=== PATIENT | female | born 1990 | race Caucasian/White ===

== ENCOUNTER 2017-03-29 11:04 | Emergency (ER) | payer MEDICAID ==
--- NOTE | 2017-03-29 11:34 | EDPHY ---
H & P Stated Complaint: st x 2 days Time Seen by Provider: 03/29/17 11:31 HPI/ROS: HPI: This is a 27-year-old female who presents with Chief Complaint: Cough, sore throat Location: Chest Quality: Cough Duration: 2-3 days Signs and Symptoms: No fever, + dry cough, no chills, + sore throat, + nasal congestion, no neck stiffness, no headache, no nausea, no vomiting, no abdominal pain, no chest pain, shortness of breath Timing: Gradual onset Severity: [id number] Context: Patient recently moved to the area has a history of asthma, + tobacco user does not have her albuterol inhaler presents with 2-3 days of nonproductive cough, denies wheezing, mild sore throat and nasal congestion. She has been eating and drinking normally. She denies any lower extremity swelling. Modifying Factors: NyQuil p.m. with mild relief Comment: ROS: see HPI Constitutional: No fever, no chills, no weight loss Eyes: No blurred vision Respiratory: No shortness of breath, + cough Cardiovascular: No chest pain Gastrointestinal: No nausea, no vomiting, no diarrhea Genitourinary: No dysuria Extremities: No myalgias Neurologic: No weakness, no numbness Skin: No rashes Hematologic: No bruising, no bleeding MEDICAL/SURGICAL/SOCIAL HISTORY: Medical history: Asthma Surgical history: Denies Social history: Lives with her father CONSTITUTIONAL: Obese white female, smells heavily of tobacco smoke, awake and alert, no obvious distress HEENT: Atraumatic and normocephalic, PERRL, EOMI. Tympanic membranes clear. Oropharynx clear, tonsils 1+; no erythema; uvula midline; no exudate and moist pink mucosa. Airway patent. No lymphadenopathy. No meningismus. Cardiovascular: Normal S1/S2, regular rate, regular rhythm, without murmur rub or gallop. PULMONARY/CHEST: Symmetrical and nontender. Clear to auscultation bilaterally. Good air movement. No accessory muscle usage. ABDOMEN: Soft, nondistended, nontender, no rebound, no guarding, no peritoneal signs, no masses or organomegaly. No CVAT. EXTREMITIES: 2/2 pulses, no deformities, no clubbing, no cyanosis or edema. NEUROLOGICAL: no focal neuro deficits. GCS 15. SKIN: Warm and dry, no erythema. no rash. Good capillary refill. Source: Patient Exam Limitations: No limitations - Personal History LMP (Females 10-55): 15-21 Days Ago Current Tetanus/Diphtheria Vaccine: Unsure - Medical/Surgical History Hx Asthma: No Hx Chronic Respiratory Disease: No Hx Diabetes: No Hx Cardiac Disease: No Hx Renal Disease: No Hx Cirrhosis: No Hx Alcoholism: No Hx HIV/AIDS: No Hx Splenectomy or Spleen Trauma: No Other PMH: denies - Social History Smoking Status: Current every day smoker Constitutional: Initial Vital Signs Temperature (C) 36.6 C 03/29/17 11:06 Heart Rate 98 03/29/17 11:06 Respiratory Rate 19 03/29/17 11:06 Blood Pressure 147/95 H 03/29/17 11:06 O2 Sat (%) 97 03/29/17 11:06 O2 Delivery Mode Room Air Allergies/Adverse Reactions: amoxicillin Allergy (Verified 03/29/17 11:06) Home Medications: Medication Instructions Recorded Albuterol Sulfate [Proair Hfa] 8.5 gm IH Q4 PRN #1 hfa.[email or web address] 03/29/17 predniSONE [predniSONE TAPER] 10 mg PO DAILY 6 Days ea 03/29/17 Medical Decision Making - Diagnostics Imaging Results: Imaging Impressions Chest X-Ray 03/29/17 11:30 IMPRESSION: Normal chest x-ray. ED Course/Re-evaluation: Strep test negative. No signs of tonsillar abscess/airway compromise. Chest x-ray, p.o. prednisone 60 mg, albuterol nebulizer ordered No signs of hypoxia/respiratory distress Afebrile. No systemic signs. Chest x-ray my read shows no signs of pneumothorax/opacity/effusion I refilled her albuterol inhaler and gave her a steroid taper. No indication for antibiotics at this time. Differential Diagnosis: Shortness of breath including but not limited to pulmonary infectious process, COPD, asthma, pulmonary embolus and congestive heart failure. - Data Points Laboratory Results: 03/29/17 03/29/17 Unknown 11:10 Group A Strep Screen NEGATIVE (NEGATIVE) Group A Strep DNA Pending Medications Given: Discontinued Medications Albuterol (Proventil Neb) 3 ml IH EDNOW ONE Stop: 03/29/17 11:31 Last Admin: 03/29/17 11:38 Dose: 3 ml Prednisone (Prednisone) 60 mg PO EDNOW ONE Stop: 03/29/17 11:31 Last Admin: 03/29/17 11:38 Dose: 60 mg Departure - Departure Disposition: Home, Routine, Self-Care Clinical Impression: Tobacco use, Viral bronchitis Condition: Good Instructions: Acute Bronchitis (ED) Additional Instructions: Please stop smoking. Take all medications as directed. Use [id number] decongestants and mucolytics as needed. Take Tylenol and/or ibuprofen as needed for fever, pain, headache. You can establish primary care with [facility]. Referrals: [facility],. [Clinic] - As per Instructions Prescriptions: Albuterol Sulfate [Proair Hfa] 8.5 gm IH Q4 PRN #1 hfa.aer.ad PRN Reason: Short Of Breath/Dyspnea predniSONE [predniSONE TAPER] 10 mg PO DAILY 6 Days ea
[2017-03-29] MEDS: ALBUTEROL 3 ML DEYVIAL IH ONE (11:38)
[2017-03-29] MEDS: predniSONE 20 MG TAB PO ONE (11:38)
[2017-03-29] MEDS ORDERED: predniSONE 20 MG TAB ONE (12:38)
[2017-03-29] MEDS ORDERED: ALBUTEROL INH PREPACK MDI TAKEHOME ONE (12:41)
[2017-03-29 12:44] VITALS: BP 125/76; PULSE 81; RESP 16; TEMP 98.6; O2SAT 98
== END 2017-03-29 12:44 | disposition home or self-care (01) ==
DX: J20.8 Acute bronchitis due to other specified organisms (principal); J45.909 Unspecified asthma, uncomplicated; Z72.0 Tobacco use